=== PATIENT | male | born 1995 | race Caucasian/White ===

== ENCOUNTER 2017-08-07 11:50 | Emergency (ER) | payer BC ==
[~2017-08-07] VITALS: Ht 180.3 cm; Wt 60.3 kg
[~2017-08-07 11:50] MED LIST: TESSALON PERLE100 MG PO; ZITHROMAX Z PA250 MG PO
--- OUTSIDE RECORDS SUMMARY | 2017-08-07 11:58 | External Medical Summary Rpt | CCD ---
Author Author RYAN Address Unknown Phone Purpose Continuity of Care Document - through 2016
--- OUTSIDE RECORDS SUMMARY | 2017-08-07 11:58 | External Medical Summary Rpt | CCD ---
Demographics Preferred Language Nepalese Marital Status Unknown Shinto Affiliation Unknown Race Unknown Ethnic Group Unknown Author Author , RYAN DAVIS Address Unknown Phone Immunization No patient found.
--- OUTSIDE RECORDS SUMMARY | 2017-08-07 11:58 | External Medical Summary Rpt | CCD ---
Author Author RYAN Address Unknown Phone [email or web address] Purpose Continuity of Care Document - through 2016
--- OUTSIDE RECORDS SUMMARY | 2017-08-07 11:58 | External Medical Summary Rpt | CCD ---
Author Author RYAN Address Unknown Phone [email or web address] Purpose Continuity of Care Document - through 2016
--- OUTSIDE RECORDS SUMMARY | 2017-08-07 11:58 | External Medical Summary Rpt | CCD ---
Demographics Preferred Language Zimbabwean Marital Status Unknown Temple Affiliation Unknown Race Unknown Ethnic Group Unknown Author Author , RYAN DAVIS Address Unknown Phone Immunization No patient found.
--- OUTSIDE RECORDS SUMMARY | 2017-08-07 11:58 | External Medical Summary Rpt | CCD ---
Author Author RYAN Address Unknown Phone [email or web address] Purpose Continuity of Care Document - through 2016
--- NOTE | 2017-08-07 12:43 | Urgent Treatment Center Report ---
History of Present Issue Date/Time Seen by Provider 08/07/17 1233 Visit Reason Pt arrived:Walked Presenting Problem:PT C/O RASH, COUGH, AND SINUS CONGESTION AND DRAINAGE Location if Accident: Onset of symptoms date/time:/ or onset unknown for:MEDICAL HX UNKNOWN Have you (or family members/close friends) recently traveled outside the [place]? N If Yes, where/when: Have you had exposure to infectious disease within the past month? TB? Other? Specify: Patient state that he noticed a rash on his back and he has been having cough and sinus pain with congestion. State that his infant son was just diagnosed with Hand foot and Mouth and thinks he may be breaking out. State that he does not have any rash on his hands but noticed this morning that he had a rash starting on his feet. ALLERGIES Coded Allergies: No Known Allergies (08/07/17) Home Medications Active Scripts Azithromycin (Zithromycin (Z-SETH) 250MG Tab) 250 MG PO DAILY #6 TAB Prov: 12/27/15 BENZONATATE (Benzonatate) 100 MG PO TID #15 CAP Prov: 12/27/15 History Medical History General CAD? No Angina: No [place]: No Hypertension? No Hyperlipidemia? No CHF? No DVT? No PE? No COPD? No Asthma? No Anemia? No GERD? No Gastric ulcers? No GI Bleed? No Hernia? No Thyroid Problems? No Hypothyroidism? No CVA? No Seizures? No Diabetes? No Renal Insuffiency? No UTI? No Stones? No BPH? No GB Disease: No Nephritic Syndrome? No Asplenia? No Hepatitis? No Sickle Cell Disease? No Arthritis? No Migraines? No Cataracts? No Glaucoma? No MRSA? No HIV? No TB? No Anxiety? No Depression? No Cancer? No More? No Immunization HX DT/Tetanus 5-10 Years Ago Surgical Hx Previous Surgery?Y WISDOM TEETH Social History Smoking Hx Smoker: Never Smoker Tobacco: No Alcohol Alcohol: No Review of Systems All Other Systems Reviewed and Negative ENT nose discharge, nose congestion. Skin rash (rash on back) Comment Child recently diagnosed with hand foot and mouth and he was worried that he may have had it too Physical Exam Vital Signs Vital Signs Date Time Temp Pulse Resp B/P Pulse O2 O2 Flow FiO2 Ox Delivery Rate 08/07 1225 98.1 78 18 126/74 98 General Appearance normal appearance, WD/WN, no apparent distress Ear, Nose, Throat sinus pain/drainage, nasal congestion Neck normal inspection, non-tender, supple Respiratory Status Yes: trachea midline, chest symmetrical, non tender chest. No: respiratory distress. Cardiovascular normal exam, regular rate/rhythm Neurologic alert, normal exam, oriented x 3 Skin small rough rash on back that appears acne like in nature on shoulders with sandpaper like feel on lower back, small rash area on top of foot Medical Decision Making LABS/Meds/Orders Pt receiving controlled substance in ED? No Progress [facility] Progress Notes Comment Patient informed that if rash worsens or continued to follow up with family doctor when it worsens for better evaluation and diagnoses or follow up with Dermatology Departure Departure Time of Disposition 1240 Disposition DC Home or Self Care(routine) Clinical Impression Primary Impression: Viral illness Condition STABLE Referrals JOSE GONZALEZ Patient Instructions DI for Rash, DI for Viral Upper Respiratory Infection -- Adult Additional Instructions * Monitor Temp. Tylenol and/or Ibuprofen as needed. ER if fever is no less than 101 despite alternating Tylenol and Ibuprofen * Encourage fluids, water, Gatorade, powerade, pedialyte if /toddler/or child * Warm salt water gargles for throat irritation *Warm fluids *Sore throat lozenges *Sleep elevated Discharge Counseling Counseled pt/family regarding diagnosis, home care, follow up needs at 1242
[2017-08-07 13:01] VITALS: BP 126/74
== END 2017-08-07 13:01 | disposition home or self-care (01) ==
LOC: UTC 11:50
DX: B34.9 Viral infection, unspecified (principal)